=== PATIENT | male | born 1985 | race African-American/Black ===

== ENCOUNTER 2024-06-24 13:31 | Emergency (ER) | payer OTHER ==
[2024-06-24] MEDS: methylPREDNISolone Sodium Succinate 125 MG/2 ML SDV IM ONE (13:48)
== END 2024-06-24 13:53 ==
LOC: FB.ED 13:31
DX: J02.9 Acute pharyngitis, unspecified (principal); I10 Essential (primary) hypertension; Z79.899 Other long term (current) drug therapy
CPT/HCPCS: 96372; 99283; J2919